=== PATIENT | female | born 1990 | race Caucasian/White ===

== ENCOUNTER 2020-10-29 22:11 | Emergency (ER) | payer MEDICAID, OTHER ==
[~2020-10-29] VITALS: Ht 167.7 cm; Wt 54.4 kg
[2020-10-29 22:34] VITALS: BP 138/64
[2020-10-29] MEDS ORDERED: PROMETHAZINE INJ 25 MG/ML (PHENERGAN) AMP ONE (22:43)
[2020-10-29] MEDS ORDERED: ACETAMINOPHEN 500 MG TAB (TYLENOL) ONE (22:44)
[2020-10-29 22:56] LABS: BILIRUBIN,URINE NEGATIVE (NEGATIVE); CLARITY,URINE CLOUDY; COLOR,URINE YELLOW; GLUCOSE, URINE (UA) NEGATIVE (NEGATIVE); KETONES,URINE NEGATIVE (NEGATIVE); LEUKOCYTE ESTERASE ,URINE NEGATIVE (NEGATIVE); NITRITE,URINE NEGATIVE (NEGATIVE); PROTEIN,URINE NEGATIVE (NEGATIVE)
--- NOTE | 2020-10-29 22:57 | ED Cough/URI ---
General Chief Complaint: Cough/Cold/Flu Symptoms Stated Complaint: N/V, CHILLS/LOSS OF TASTE/APPROX 9 WKS PREG Nursing Triage Note: PT AMBULATE TO ROOM 09 WITH C/O "NOT FEELING VERY WELL". PT STATES THAT SHE HAS CHILLS, N/V, COUGH. PT REPORTS SHE WAS TESTED FOR THE DAVIS 1-2 WEEKS AGO AND RESULTS WERE NEGATIVE. PT REPORTS SHE IS 9-10 WEEKS AND HAS BEEN SEEN BY AN OB PROVIDER IN [place]. PT REPORTS SYMPTOMS STARTED AT 2000 OR 2100 THIS EVENING. Sepsis Screen: No Definite Risk Source: patient Exam Limitations: no limitations History of Present Illness Date Seen by Provider: Oct 29, 2020 Time Seen by Provider: 22:40 Initial Comments Patient presents ER by private conveyance with chief complaint that today she started having symptoms of chills, body aches, nausea and vomited times twice. No known sick contacts but previously she worked at a [employer] in [employer]. No fever. She has not taken any antipyretics. She has a last menstrual period of August 21 putting her at 9 weeks 6 days gestation followed by Dr. Hood, obstetrics at [place], [place]. She had an ultrasound confirming her dates and no other known medical problems. Allergies and Home Medications Allergies Coded Allergies: No Known Drug Allergies (Unverified , 10/29/20) Patient Home Medication List Home Medication List Reviewed: Yes Review of Systems Review of Systems Constitutional: chills, diaphoresis; No fever; malaise EENTM: No ear discharge, No ear pain Respiratory: cough; No dyspnea on exertion, No short of breath Cardiovascular: No chest pain, No palpitations Gastrointestinal: No abdominal pain, No constipation, No diarrhea Genitourinary: No discharge, No dysuria Musculoskeletal: No back pain, No joint pain Psychiatric/Neurological: Denies Anxiety, Denies Depressed All Other Systems Reviewed Negative Unless Noted: Yes Past Ffnnyyj-Jqaqhk-Ruymtt Hx Patient Social History Alcohol Use: Denies Use Drug of Choice: POT Smoking Status: Current Everyday Smoker Type Used: Cigarettes 2nd Hand Smoke Exposure: Yes Recent Infectious Disease Expo: No Recent Hopitalizations: No Seasonal Allergies Seasonal Allergies: No Past Medical History Surgeries: No Respiratory: No Cardiac: No Neurological: No Sexually Transmitted Disease: Yes (GONORRHEA) Genitourinary: Yes Bladder Infection Gastrointestinal: No Musculoskeletal: No Endocrine: No HEENT: No Cancer: No Psychosocial: No Integumentary: No Blood Disorders: No Physical Exam Vital Signs - First Documented 10/29/20 22:34 Temp 36.2 Pulse 83 Resp 18 B/P (MAP) 138/64 (88) O2 Delivery Room Air Capillary Refill : Less Than 3 Seconds Height: '" Weight: lbs. oz. kg; 19.00 BMI Method: General Appearance: WD/WN, mild distress Eyes: Bilateral Eye Normal Inspection, Bilateral Eye PERRL HEENT: PERRL/EOMI, normal ENT inspection, pharynx normal Neck: full range of motion, supple, normal inspection Respiratory: lungs clear, normal breath sounds, no respiratory distress, no accessory muscle use Cardiovascular: normal peripheral pulses, regular rate, rhythm Neurologic/Psychiatric: alert, normal mood/affect, oriented x 3 Progress/Results/Core Measures Suspected Sepsis Recent Fever Within 48 Hours: No Infection Criteria Present: None New/Unexplained Altered Menta: No Sepsis Screen: No Definite Risk SIRS Temperature: Pulse: 83 Respiratory Rate: 18 Blood Pressure 138 /64 Mean: 88 Results/Orders Lab Results Laboratory Tests Test 10/29/20 22:40 10/29/20 22:54 Range/Units Urine Color YELLOW Urine Clarity CLOUDY Urine pH 6.0 5-9 Urine Specific [place] 1.025 H 1.016-1.022 Urine Protein NEGATIVE NEGATIVE Urine Glucose (UA) NEGATIVE NEGATIVE Urine Ketones NEGATIVE NEGATIVE Urine Nitrite NEGATIVE NEGATIVE Urine Bilirubin NEGATIVE NEGATIVE Urine Urobilinogen 0.2 < = 1.0 MG/DL Urine Leukocyte Esterase NEGATIVE NEGATIVE Urine RBC (Auto) NEGATIVE NEGATIVE Urine RBC NONE /HPF Urine WBC 5-10 H /HPF Urine Squamous Epithelial Cells 10-25 H /HPF Urine Crystals NONE /LPF Urine Bacteria NEGATIVE /HPF Urine Casts PRESENT /LPF Urine Granular Casts 5-10 H /LPF Urine Mucus NEGATIVE /LPF Urine Culture Indicated NO Coronavirus 2019 (RISHI) Negative Negative Micro Results Microbiology 10/29/20 Influenza Types A,B Antigen (YANDEL) - Final, Complete My Orders Orders - CRISTINA JOHN Urine Bedside (10/29/20 22:12) Promethazine Injection (Phenergan Injec (10/29/20 22:43) Acetaminophen Tablet (Tylenol Tablet) (10/29/20 22:44) Ua Culture If Indicated (10/29/20 22:51) Urine Bedside (10/29/20 22:51) Promethazine Injection (Phenergan Injec (10/29/20 23:00) Acetaminophen Tablet (Tylenol Tablet) (10/29/20 23:00) Covid 19 Inhouse Test (10/29/20 22:52) Influenza A And B Antigens (10/29/20 22:52) Medications Given in ED Current Medications Medications Dose Ordered Sig/Vira Route Start Time Stop Time Status Last Admin Dose Admin Acetaminophen 1,000 mg ONCE ONCE PO 10/29/20 23:00 10/29/20 23:01 DC 10/29/20 22:57 1,000 MG Promethazine HCl 25 mg ONCE ONCE IM 10/29/20 23:00 10/29/20 23:01 DC 10/29/20 22:58 25 MG Vital Signs/I&O 10/29/20 10/29/20 22:34 22:41 Temp 36.2 Pulse 83 Resp 18 B/P (MAP) 138/64 (88) O2 Delivery Room Air Room Air Capillary Refill : Less Than 3 Seconds Blood Pressure Mean: 88 Progress Note #1: Time: 22:56 Progress Note Patient presents with viral syndrome so we will get a swab her for flu and Covid. She has a septic vital signs. She is having some chills so we will give her a gram of Tylenol. We have discussed conservative management of symptoms. Because of her nausea and vomiting and our concern for her becoming dehydrated we will give her a dose of Phenergan IM. Progress Note #2: Time: 23:35 Progress Note Patient says she feels significantly better and has had no further nausea. She is had no vomiting or material deterioration during her emergency room stay. She is ready to go home. We will provide her with some Phenergan and encouraged Tylenol as well as follow-up with the six pack loader operator. Return precautions have been discussed. We encouraged a pulse oximeter use as well. Departure Impression Primary Impression: Person under investigation for COVID-19 Additional Impression: Qualified Codes: Z3A.12 - 12 weeks gestation of Disposition: 01 HOME, SELF-CARE Condition: Stable Departure-Patient Inst. Decision time for Depature: 23:35 Referrals: NO,LOCAL PHYSICIAN (PCP/Family) Primary Care Physician Patient Instructions: Coronavirus Disease 2019 (COVID-19) in (DC) Add. Discharge Instructions: Drink plenty of fluids. Phenergan 1 tablet every 8 hours as necessary to control nausea and/or vomiting. Tylenol 1000 mg every 8 hours as necessary for body aches, fevers or malaise. Call and follow-up with your six pack loader operator over the phone. Obtain a pulse oximeter and if your oxygen saturation is consistently below 94% and you should return to the ER for further evaluation. Return to the nearest ER if you are having worsening shortness of breath, dehydration or other worrisome symptoms. All discharge instructions reviewed with patient and/or family. Voiced understanding. Scripts Promethazine HCl (Promethazine Tablet) 25 Mg Tablet 25 MG PO Q6H PRN for NAUSEA/VOMITING, #12 TAB 0 Refills Prov: CRISTINA JOHN 10/29/20 Work/School Note: Work Release Form Date Seen in the Emergency Department: Oct 29, 2020 Return to Work: Nov 08, 2020 Restrictions: No Restrictions Other Restrictions Listed Below: Off quarantine when 24 hours symptoms free without meds. CRISTINA JOHN Oct 29, 2020 22:57
[2020-10-29] MEDS ORDERED: PROMETHAZINE INJ 25 MG/ML (PHENERGAN) AMP IM ONE (23:00)
[2020-10-29] MEDS ORDERED: ACETAMINOPHEN 500 MG TAB (TYLENOL) PO ONE (23:00)
[2020-10-29 23:04] LABS: BACTERIA,URINE NEGATIVE /HPF
[2020-10-29] MEDS ORDERED: PROM25TA14 PO (23:41)
== END 2020-10-29 23:50 | disposition home or self-care (01) ==
LOC: ER 22:20
DX: O26.891 Other specified pregnancy related conditions, first trimester (principal); Z3A.09 9 weeks gestation of pregnancy; F17.210 Nicotine dependence, cigarettes, uncomplicated; Z20.828 Contact with and (suspected) exposure to other viral communicable diseases
CPT/HCPCS: 81000; 84703; 87804; U0002; 87635

== ENCOUNTER 2021-05-07 15:14 | Outpatient (CLI) | payer MEDICAID ==
[~2021-05-07 15:14] MED LIST: PROM25TA14 PO
--- NOTE | 2021-05-07 16:39 | Diagnostic Imaging Report ---
TECHNIQUE: Live grayscale and color Doppler ultrasound was performed over the gravid uterus. Biophysical profile was performed. COMPARISON: None. REASON FOR EXAM: Decelerations in the office. FINDINGS: A single live intrauterine gestation is visualized in cephalic presentation. heart tones measure 139 bpm. The placenta is along the left aspect of the uterus. The JAMES measures 9.7 cm. The biophysical profile score is 6 out of 8. 2 points were given for movement, tone, and JAMES. No points were given for breathing. 2 episodes of 15 seconds of breathing were observed, with the minimum of 30 seconds of breathing not witnessed during the exam. IMPRESSION: 1. Single live intrauterine gestation in cephalic presentation. 2. Biophysical profile score of 6 out of 8 with 0 points given for breathing. Recommend follow-up as indicated. Dictated by: Dictated on workstation # [id number]
[2021-05-07 17:07] VITALS: BP 141/88
--- NOTE | 2021-05-08 09:51 | Physician Query-Final Dx ---
VANI ANDRADE 05/08/21 0951: Clinic Account Progress/Dx Physician Query: Please give diagnosis Please include # weeks gestation Date of Service May 07, 2021 at 15:14 RAJNI CARRERA DO 05/09/21 0903: Clinic Account Progress/Dx DIAGNOSIS: Diagnosis 37 week GA bradycardia on out-patient doppler reassuring monitoring VANI ANDRADE May 08, 2021 09:51 RAJNI CARRERA DO May 09, 2021 09:03
== END 2021-05-07 17:12 | disposition home or self-care (01) ==
LOC: WSo 15:14 → LDRP 15:14 → WSo 17:12
PROVIDERS: ATTEND Family Medicine
DX: Z34.90 Encounter for supervision of normal pregnancy, unspecified, unspecified trimester (principal); Z3A.00 Weeks of gestation of pregnancy not specified
CPT/HCPCS: 59025; 76819

== ENCOUNTER 2021-05-14 13:50 | Inpatient (IN) | payer MEDICAID ==
[~2021-05-14] VITALS: Ht 171 cm; Wt 70.0 kg
[2021-05-14] VITALS (43 sets, daily range): BP systolic 83–170; BP diastolic 46–99
[2021-05-14] MEDS ORDERED: OXYTOCIN PRE-MIX DRIP 500 ML IV SCH (15:00)
[2021-05-14] MEDS ORDERED: MINERAL OIL CONCENTRATE 99.9% 15 ML UDC TOP PRN (15:00)
[2021-05-14] MEDS ORDERED: D5 LR IV SOLUTION 1,000 ML IV ONE (15:12)
[2021-05-14] MEDS ORDERED: OXYTOCIN PRE-MIX DRIP 500 ML IV ONE (15:21)
[2021-05-14 15:43] LABS: HEMOGLOBIN 13.1 g/dL (11.5-16.0); MEAN PLATELET VOLUME 12.6 fL (9.0-12.2)
[2021-05-14 15:45] LABS: BASOPHILS # (AUTO) 0.1 10^3/uL (0.0-0.1); BASOPHILS % (AUTO) 0 % (0-10); EOSINOPHILS # (AUTO) 0.2 10^3/uL (0.0-0.3); EOSINOPHILS % (AUTO) 1 % (0-10); HEMATOCRIT 39 % (35-52); LYMPHOCYTES # (AUTO) 2.1 10^3/uL (1.0-4.0); LYMPHOCYTES % (AUTO) 15 % (12-44); MEAN CORPUSCULAR HEMOGLOBIN 32 pg (25-34); MEAN CORPUSCULAR HGB CONC 34 g/dL (32-36); MEAN CORPUSCULAR VOLUME 94 fL (80-99); MONOCYTES # (AUTO) 0.9 10^3/uL (0.0-1.0); MONOCYTES % (AUTO) 7 % (0-12); NEUTROPHILS # (AUTO) 10.8 10^3/uL (1.8-7.8); NEUTROPHILS % (AUTO) 75 % (42-75); PLATELET COUNT 123 10^3/uL (130-400); WHITE BLOOD COUNT 14.4 10^3/uL (4.3-11.0)
[2021-05-14 15:46] LABS: ALBUMIN 3.3 GM/DL (3.2-4.5); BILIRUBIN,TOTAL 0.6 MG/DL (0.1-1.0); CALCIUM 8.8 MG/DL (8.5-10.1); CREATININE SERUM 0.7 MG/DL (0.60-1.30); POTASSIUM 3.7 MMOL/L (3.6-5.0); TOTAL PROTEIN 6.7 GM/DL (6.4-8.2); URIC ACID 6.2 MG/DL (2.6-7.2)
[2021-05-14 16:03] LABS: BAND NEUTROPHILS 0 %; LYMPHOCYTES % (MANUAL) 20 %; NEUTROPHILS % (MANUAL) 70 %
[2021-05-14 16:04] LABS: ATYPICAL LYMPHOCYTES 2 %; BASOPHILS % (MANUAL) 0 %; EOSINOPHILS % (MANUAL) 1 %; MONOCYTES % (MANUAL) 7 %; RBC MORPH NORMAL
[2021-05-14] MEDS ORDERED: fentaNYL 2 mcg/ml BUPIVA 0.125 100 ML ONE (17:09)
[2021-05-14] MEDS ORDERED: LACTATED RINGERS 1,000 ML IV ONE (17:09)
[2021-05-14] MEDS ORDERED: hydrALAZINE (APESOLINE) 20 MG/ML VIAL IV PRN (17:15)
[2021-05-14] MEDS ORDERED: LABETALOL HCL 100 MG/20 ML VIAL IV PRN (17:15)
[2021-05-14 17:21] LABS: AMPHETAMINE SCREEN, URINE NEGATIVE (NEGATIVE); BARBITURATE SCREEN URINE NEGATIVE (NEGATIVE); BENZODIAZEPINES SCREEN URINE NEGATIVE (NEGATIVE); CANNABINOID SCREEN, URINE POSITIVE (NEGATIVE); COCAINE SCREEN URINE NEGATIVE (NEGATIVE); METHADONE STAT NEGATIVE (NEGATIVE); METHAMPHETAMINE SCREEN URINE S NEGATIVE (NEGATIVE); OPIATE SCREEN URINE NEGATIVE (NEGATIVE); OXYCODONE STAT NEGATIVE (NEGATIVE); PROPOXYPHENE STAT NEGATIVE (NEGATIVE); TRICYCLIC ANTIDEPRESSANTS SCRE NEGATIVE (NEGATIVE)
[2021-05-14] MEDS ORDERED: fentaNYL INJ 100 MCG/2 ML AMP ONE (18:30)
[2021-05-14] MEDS ORDERED: BUPIVACAINE 0.25% 30 ML (SENSORCAINE) VIAL ONE (18:30)
[2021-05-14] MEDS ORDERED: EPIDURAL (fentaNYL 2 MCG/ML BUPIVA 0.125%)100 ML BAG EPI PRN (20:15)
[2021-05-14] MEDS ORDERED: METOCLOPRAMIDE INJ 10 MG/2 ML (REGLAN) IV PRN (20:15)
[2021-05-14] MEDS ORDERED: NALOXONE 0.4 MG/ML 1 ML (NARCAN) VIAL IV PRN ×2 (20:15)
[2021-05-14] MEDS ORDERED: diphenhydrAMINE 50 MG/ML INJ (BENADRYL) IV PRN (20:15)
[2021-05-14] MEDS ORDERED: LACTATED RINGERS 1,000 ML IV SCH (20:15)
[2021-05-14] MEDS ORDERED: ONDANSETRON 4 MG/2 ML (SDV) Z0FRAN IV PRN (20:15)
--- NOTE | 2021-05-14 20:18 | History & Physical-OB ---
OB - Chief Complaint & HPI Date/Time Date of Admission: Date of Admission: May 14, 2021 at 13:50 Date seen by a Provider: May 14, 2021 Time Seen by a Provider: 20:13 Chief Complaint/History OB-Reason for Admission/Chief: Obstetrical Complication Hx : 5 Hx Para: 2112 Expected Date of Delivery: May 28, 2021 Gestational Age in Weeks: 38 Gestational Age in Days: 0 History of Labs O pos, antibody neg, RI. HIV/hepB/RPR NR. GBS neg. Allergies and Home Medications Allergies Coded Allergies: No Known Drug Allergies (Unverified , 10/29/20) Home Medications No Active Prescriptions or Reported Meds Patient Home Medication List Home Medication List Reviewed: Yes OB - History Hx of Present Care: Yes Ultrasounds: Normal mid trimester US Obstetrical Complications: Gestational Hypertension Information Induced Hypertension: Yes Maternal Gestational Diabetes: No Hemorrhage: No Obstetrical History Hx : 5 Hx Para: 3 Hx # Term Pregnancies: 2 Hx # Pregnancies: 1 Number of Living Children: 3 Hx Total # of Abortions (Spona: 1 Hx Multiple Gestation: No Hx Ectopic : No Hx Stillbirth: No Hx Complication: Yes Hx Induced Hypertens: Yes Hx Maternal Gestational Diabet: No Hx Hemorrhage: No Delivery History Hx Dystocia: No Hx Forceps Assisted Delivery: No Hx Vacuum Extraction Assisted: No Hx Placenta Abnormality: No Hx Distress: No Hx Large For Gestational Age I: No Hx Small for Gestational Age I: No Hx Section: No Hx Vaginal Delivery Post C-Sec: No Hx Blood Disorders: No Adverse Rxn to Tranfusion: No Patient Past Medical History PMHx: Denies SurgHx: Denies Social History/Family History Alcohol Use: Denies Use Recreational Drug Use: No (denies) Smoking Cessation: Current every day smoker 2nd Hand Smoke Exposure: Yes Immunizations Hepatitis A: Yes Hepatitis B: Yes Rubella: immune RPR/VDRL: Negative GBS Status: Negative HBsAG: Negative OB - Admission Exam Physical Exam Vitals: Vital Signs 05/14/21 05/14/21 18:37 19:30 Temp 37.1 Pulse 88 Resp 18 B/P (MAP) 138/91 (107) Pulse Ox 99 O2 Delivery Room Air HEENT: NCAT Abdomen: Non tender Extremities: Edema Cervical Dilatation: 4cm Effacement: 25% Station: -2 Membranes: Ruptured (at time of exam) Amniotic Fluid: Clear Heart Rate: 140's Accelerations: Accelerations Present Decelerations: No Decelerations Short Term Variability: Present Ice Seller Variability: Average (6-25) Contractions on Admission: None Deal Scoring Tool (Modified) Dilation (cm): 3-4cm (2) Effacement (%): 0-30% (0) Descent/Station: -3 (0) Cervix Consistency: Medium(1) Cervix Position: Middle/Mid-Position (1) Add 1 point for: Each previous vaginal delivery (1) (3) Deal Score: 7 Labs Laboratory Tests Test 05/14/21 14:08 05/14/21 15:16 Range/Units Urine Protein 8 6-12 MG/DL Urine Creatinine 86 30-125 MG/DL Urine Protein/Creatinine Ratio 0.09 Urine Opiates Screen NEGATIVE NEGATIVE Urine Oxycodone Screen NEGATIVE NEGATIVE Urine Methadone Screen NEGATIVE NEGATIVE Urine Propoxyphene Screen NEGATIVE NEGATIVE Urine Barbiturates Screen NEGATIVE NEGATIVE Ur Tricyclic Antidepressants Screen NEGATIVE NEGATIVE Urine Phencyclidine Screen NEGATIVE NEGATIVE Urine Amphetamines Screen NEGATIVE NEGATIVE Urine Methamphetamines Screen NEGATIVE NEGATIVE Urine Benzodiazepines Screen NEGATIVE NEGATIVE Urine Cocaine Screen NEGATIVE NEGATIVE Urine Cannabinoids Screen POSITIVE H NEGATIVE White Blood Count 14.4 H 4.3-11.0 10^3/uL Red Blood Count 4.13 3.80-5.11 10^6/uL Hemoglobin 13.1 11.5-16.0 g/dL Hematocrit 39 35-52 % Mean Corpuscular Volume 94 80-99 fL Mean Corpuscular Hemoglobin 32 25-34 pg Mean Corpuscular Hemoglobin Concent 34 32-36 g/dL Red Cell Distribution Width 13.1 10.0-14.5 % Platelet Count 123 L 130-400 10^3/uL Mean Platelet Volume 12.6 H 9.0-12.2 fL Immature Granulocyte % (Auto) 2 % Neutrophils (%) (Auto) 75 42-75 % Lymphocytes (%) (Auto) 15 12-44 % Monocytes (%) (Auto) 7 0-12 % Eosinophils (%) (Auto) 1 0-10 % Basophils (%) (Auto) 0 0-10 % Neutrophils # (Auto) 10.8 H 1.8-7.8 10^3/uL Lymphocytes # (Auto) 2.1 1.0-4.0 10^3/uL Monocytes # (Auto) 0.9 0.0-1.0 10^3/uL Eosinophils # (Auto) 0.2 0.0-0.3 10^3/uL Basophils # (Auto) 0.1 0.0-0.1 10^3/uL Immature Granulocyte # (Auto) 0.3 H 0.0-0.1 10^3/uL Neutrophils % (Manual) 70 % Lymphocytes % (Manual) 20 % Monocytes % (Manual) 7 % Eosinophils % (Manual) 1 % Basophils % (Manual) 0 % Band Neutrophils 0 % Atypical Lymphocytes 2 % Percent Immature Platelet Fraction 17.0 H 0.0-7.6 % Blood Morphology Comment NORMAL Sodium Level 137 135-145 MMOL/L Potassium Level 3.7 3.6-5.0 MMOL/L Chloride Level 108 H 98-107 MMOL/L Carbon Dioxide Level 21 21-32 MMOL/L Anion Gap 8 5-14 MMOL/L Blood Urea Nitrogen 9 7-18 MG/DL Creatinine 0.70 0.60-1.30 MG/DL Estimat Glomerular Filtration Rate 98 BUN/Creatinine Ratio 13 Glucose Level 77 70-105 MG/DL Uric Acid 6.2 2.6-7.2 MG/DL Calcium Level 8.8 8.5-10.1 MG/DL Corrected Calcium 9.4 8.5-10.1 MG/DL Total Bilirubin 0.6 0.1-1.0 MG/DL Aspartate Amino Transf (AST/SGOT) 17 5-34 U/L Alanine Aminotransferase (ALT/SGPT) 21 0-55 U/L Alkaline Phosphatase 182 H 40-136 U/L Lactate Dehydrogenase 159 125-220 U/L Total Protein 6.7 6.4-8.2 GM/DL Albumin 3.3 3.2-4.5 GM/DL OB - Assessment/Plan/Diagnosis Assessment Admission Dx Term intrauterine at 38 weeks gestation Chronic hypertension (present before 20 weeks gestation with unknown baseline) with superimposed severe elevation in blood pressure GBS negative Admission Status: Inpatient Order (span 2 midnights) Reason for Inpatient Admission: Labor, delivery and course Plan Plan: Induction Induction Method: per Pitocin Protocol Other Plan BP severely elevated in clinic, blood pressure inpatient better. Labetalol if needed, preeclmapsia labs negative on admit. AROM done at time of exam with clear fluid. ADRYAN TRAMMELL MD May 14, 2021 20:18
[2021-05-14] MEDS ORDERED: PNV91TAB6 PO (20:19)
[2021-05-14] MEDS ORDERED: ASPI-1238 PO (20:19)
[2021-05-14] MEDS ORDERED: SERT-413 PO (20:19)
[2021-05-14] MEDS ORDERED: CATHETER FLUSH 10 ML SYR IV SCH (22:00)
[2021-05-14] MEDS: D5 LR IV SOLUTION 1,000 ML IV SCH (22:40)
[2021-05-15] VITALS (40 sets, daily range): BP systolic 119–174; BP diastolic 55–104
[2021-05-15] MEDS: D5 LR IV SOLUTION 1,000 ML IV SCH ×2 (02:33→17:53)
[2021-05-15] MEDS ORDERED: CITRIC ACID/SOB CIT (BICITRA) 30 ML UDC ONE (09:05)
[2021-05-15] MEDS ORDERED: FAMOTIDINE 20MG/2ML IV (PEPCID) ONE (09:06)
[2021-05-15] MEDS ORDERED: fentaNYL INJ 100 MCG/2 ML AMP ONE (09:14)
[2021-05-15] MEDS ORDERED: LACTATED RINGERS 1,000 ML IV PRN ×2 (09:15)
[2021-05-15] MEDS ORDERED: METOCLOPRAMIDE INJ 10 MG/2 ML (REGLAN) IV ONE (09:15)
[2021-05-15] MEDS ORDERED: metroNIDAZOLE 500MG/100ML IVPB 100 ML IV ONE (09:15)
[2021-05-15] MEDS ORDERED: FAMOTIDINE 20MG/2ML IV (PEPCID) IV ONE (09:15)
[2021-05-15] MEDS ORDERED: CITRIC ACID/SOB CIT (BICITRA) 30 ML UDC PO ONE (09:15)
[2021-05-15] MEDS ORDERED: metroNIDAZOLE 500MG/100ML IVPB 100 ML ONE (09:20)
[2021-05-15] MEDS ORDERED: ceFAZolin 2 GM IV Premixed 50 ML ONE (09:20)
[2021-05-15] MEDS ORDERED: LIDOCAINE PF 2% 5 ML (XYLOCAINE) VIAL ONE (09:22)
[2021-05-15] MEDS ORDERED: BUPIVACAINE 0.5% 30 ML (SENSORCAINE) VIAL ONE (09:22)
[2021-05-15] MEDS ORDERED: ONDANSETRON 4 MG/2 ML (SDV) Z0FRAN ONE (09:22)
[2021-05-15] MEDS ORDERED: OXYTOCIN PRE-MIX DRIP 500 ML IV SCH (10:00)
[2021-05-15] MEDS ORDERED: D5 LR IV SOLUTION 1,000 ML IV SCH (10:00)
[2021-05-15] MEDS ORDERED: TETANUS,DIPTH,PERTUSS P/F (BOOSTRIX) 0.5 ML VIAL IM ONE (10:00)
[2021-05-15] MEDS ORDERED: NALOXONE 0.4 MG/ML 1 ML (NARCAN) VIAL IV PRN (10:00)
[2021-05-15] MEDS ORDERED: ONDANSETRON 4 MG/2 ML (SDV) Z0FRAN IVP PRN ×2 (10:00→10:15)
[2021-05-15] MEDS ORDERED: MEASLES,MUMPS,RUBELLA 1 EA INJ SC ONE (10:00)
[2021-05-15] MEDS ORDERED: fentaNYL INJ 100 MCG/2 ML AMP IVP PRN (10:00)
[2021-05-15] MEDS ORDERED: PROMETHAZINE INJ 25 MG/ML (PHENERGAN) AMP IVP ONE (10:15)
[2021-05-15] MEDS ORDERED: MEPERIDINE (DEMEROL) INJ 50 MG/ML IVP ONE (10:15)
[2021-05-15] MEDS ORDERED: morphine INJ 10 MG/ML 1ML (SYR OR VIAL) IVP ONE (10:15)
[2021-05-15] MEDS: KETOROLAC 30 MG/ML VIAL IVP PRN ×2 (11:18→17:49)
[2021-05-15] MEDS: oxyCODONE/APAP 10/325MG (PERCOCET 10) TABLET PO PRN ×3 (13:41→21:51)
[2021-05-15] MEDS ORDERED: DOCUSATE SODIUM 100 MG (COLACE) CAP PO SCH (21:00)
[2021-05-15] MEDS: DOCUSATE SODIUM 100 MG (COLACE) CAP PO SCH (21:51)
[2021-05-16 00:27] VITALS: BP 150/84
[2021-05-16] MEDS: KETOROLAC 30 MG/ML VIAL IVP PRN ×2 (00:27→05:27)
[2021-05-16 05:26] VITALS: BP 159/88
--- NOTE | 2021-05-16 07:12 | Progress Note ---
Standard Progress Note Progress Notes/Assess & Plan Date Seen by a Provider: May 16, 2021 Time Seen by a Provider: 07:11 Progress/Assessment & Plan This patient is without complaint. She is ambulating, voiding, tolerating oral intake well has good pain control. Vital Signs 05/15/21 05/15/21 05/16/21 07:30 10:58 05:26 Temp 36.6 Pulse 86 Resp 18 B/P (MAP) 159/88 (111) Pulse Ox 96 O2 Delivery Room Air O2 Flow Rate 15.00 Vital signs are stable. Patient is afebrile. Fundus is firm below the umbilicus and nontender. The surgical incision is clean dry and intact. Extremities show no clubbing or cyanosis. There is no Homans' sign. Assessment and plan Postoperative day 1 status post primary delivery doing well. Plans for routine convalescent care with likely discharge home tomorrow MIR YAN MD May 16, 2021 07:12
[2021-05-16] MEDS ORDERED: DCS100C PO (07:14)
[2021-05-16] MEDS ORDERED: OXYC1TAB12 PO (07:14)
[2021-05-16] MEDS ORDERED: IBUP-1780 PO (07:14)
--- NOTE | 2021-05-16 07:15 | Discharge Inst-Surgical ---
Discharge Inst-Surgical Depart Medication/Instructions New, Converted or Re-Newed RX: Transmitted to Pharmacy Consults/Follow Up Patient Instructions: As directed Orders & Referrals Follow Up Appt: RTC 1 week for incision check With Dr. Arevalo. Call to make follow up appt. for patient in [address] Hopkins. Wound Care: Remove sohan, apply benzoin and steri strips. Activity Per routine post instructions. Diet as tolerated Patient may shower or tub bathe as desired. Continue home meds Activity Activity as Tolerated: No Diet Discharge Diet: No Restrictions MIR AREVALO MD May 16, 2021 07:15
[2021-05-16 09:00] VITALS: BP 165/78
[2021-05-16] MEDS: DOCUSATE SODIUM 100 MG (COLACE) CAP PO SCH ×2 (09:10→22:01)
[2021-05-16] MEDS: oxyCODONE/APAP 10/325MG (PERCOCET 10) TABLET PO PRN ×2 (09:11→18:13)
[2021-05-16] MEDS ORDERED: ceFAZolin 2 GM IV Premixed 50 ML IV ONE (09:15)
[2021-05-16 12:15] VITALS: BP 151/71
[2021-05-16] MEDS ORDERED: IBUPROFEN 800 MG (MOTRIN) TAB PO ONE (12:32)
[2021-05-16] MEDS: IBUPROFEN 800 MG (MOTRIN) TAB PO SCH ×3 (12:33→23:32)
[2021-05-16] MEDS ORDERED: COVID-19 VACC,MRNA(MODERNA)/PF 100 MCG/0.5 ML VIAL IM ONE (13:30)
[2021-05-16 17:00] VITALS: BP 137/75
[2021-05-16] MEDS: NICOTINE 21 MG (NICODERM) PATCH TD SCH (17:00)
[2021-05-16 23:32] VITALS: BP 157/82
--- NOTE | 2021-05-17 00:39 | OPERATIVE REPORT ---
DATE OF SERVICE: 05/15/2021 PREOPERATIVE DIAGNOSIS: Term in labor with nonreassuring heart rate pattern. POSTOPERATIVE DIAGNOSIS: Term in labor with nonreassuring heart rate pattern with triple nuchal cord. OPERATIVE DESCRIPTION: With the patient in the supine position under satisfactory epidural analgesia, the patient was prepped and draped in the usual fashion for abdominal surgery. A Pfannenstiel incision was made through the skin with a scalpel, the patient's abdomen was entered in the usual manner. Bladder retractor placed in position, clean scalpel used to make a 4 cm hysterotomy incision transversely across the lower uterine segment that was extended by blunt dissection as well. Scant fluid was released on hysterotomy. A vigorous viable male was delivered via the uterine incision. Infant was bulb suctioned on delivery of the head. Nuchal cord x3 was released. This cord was quite tight. The delivery was completed. The umbilical cord doubly clamped and the infant passed to the auto electrician in attendance for delivery. Cord bloods were obtained. Placenta delivered spontaneously [place]. It was normal with a 3-vessel cord. The uterus was exteriorized and interior wiped clean with wet laparotomy sponge. Uterine incision then closed with a running locked suture of 2-0 Vicryl. Hemostasis was complete. The uterus was returned to abdominal cavity. All blood clot and debris removed from the abdominal cavity. Sponge and needle counts correct, hemostasis assured. Anterior parietal peritoneum was closed with running suture of 2-0 Vicryl. Rectus muscles were closed with that suture as well. The rectus fascia was closed with 2-0 Vicryl, subcutaneous tissue was closed with 2-0 Vicryl and the skin was stapled. Sponge and needle counts were correct on completion of the procedure. Blood loss for the procedure was around 250 mL. The patient tolerated the procedure well and was transferred to the recovery room in stable condition. The baby had been taken stable to the full term nursery. Job ID: [id number] DocumentID: [id number] Dictated Date: 05/16/2021 08:06:35 Panel Lay Up Worker Date: 05/17/2021 00:38:40 Dictated By: MIR YAN MD
[2021-05-17 06:29] VITALS: BP 116/74
[2021-05-17] MEDS: IBUPROFEN 800 MG (MOTRIN) TAB PO SCH ×2 (06:29→12:43)
[2021-05-17] MEDS: oxyCODONE/APAP 10/325MG (PERCOCET 10) TABLET PO PRN (06:29)
--- NOTE | 2021-05-17 07:44 | Progress Note ---
Standard Progress Note Progress Notes/Assess & Plan Date Seen by a Provider: May 17, 2021 Time Seen by a Provider: 07:43 Progress/Assessment & Plan This patient is without complaint. She is ambulating, voiding, tolerating oral intake well has good pain control. Vital Signs 05/15/21 05/15/21 05/16/21 07:30 10:58 05:26 Temp 36.6 Pulse 86 Resp 18 B/P (MAP) 159/88 (111) Pulse Ox 96 O2 Delivery Room Air O2 Flow Rate 15.00 Vital signs are stable. Patient is afebrile. Fundus is firm below the umbilicus and nontender. The surgical incision is clean dry and intact. Extremities show no clubbing or cyanosis. There is no Homans' sign. Assessment and plan Postoperative day 1 status post primary delivery doing well. Plans for routine convalescent care with likely discharge home tomorrow May 17, 2021 Patient is without complaint. She is ambulating, voiding, tolerating oral intake well and has good pain control. Vital Signs Date Time Temp Pulse Resp B/P (MAP) Pulse Ox O2 Delivery O2 Flow Rate FiO2 05/17/21 06:29 36.2 79 18 116/74 (88) 98 Room Air 05/16/21 23:32 36.3 87 18 157/82 (107) 98 Room Air 05/16/21 17:00 36.6 87 18 137/75 (95) 98 Room Air 05/16/21 12:15 36.8 88 18 151/71 (97) 99 Room Air 05/16/21 09:00 36.8 92 18 165/78 (107) 98 Room Air I & O 05/17/21 07:00 Intake Total 2100 ml Balance 2100 ml Vital signs are stable. Patient is afebrile. The abdomen is benign. The surgical incision is clean dry and intact. Fundus is firm below the umbilicus and nontender. Extremities show no clubbing or cyanosis. There is no Homans' sign. Assessment and plan Postoperative day #2 status post primary delivery doing well. Plan is for routine convalescent care with discharge home and follow-up in clinic MIR YAN MD May 17, 2021 07:44
--- NOTE | 2021-05-17 07:47 | Discharge Summary ---
Discharge Summary 38-week primary delivery This patient is a 30-year-old female patient of Dr. Hopkins who was admitted on May 14, 2021 duction of labor. She made no progress on the day of admission. On May 15 she dilated to 4 or 5 cm and stalled there began having recurrent decelerations and decision was made to proceed with delivery. Patient was taken the operating room where a primary was performed. Intraoperative findings included a triple nuchal cord that was released with some difficulty. The procedure was otherwise. Patient recovered uneventfully. On May 16 which was postoperative day 1 patient was ambulating, voiding control. She had routine care through the day and was stable. Now on May 17 patient again is without complaint. She is ambulating, voiding, tolerating oral intake well and has good pain control. She is discharged home and is determined she can be discharged home. Clinical diagnosis this hospitalization is 38-week primary delivery secondary diagnoses are made progress in labor Nonreassuring heart rate pattern Nuchal cord x3 Operation procedures include action of labor per Dr. Hopkins Epidural analgesia Primary delivery Patient was given appropriate discharge instructions verbally in writing copy was placed in chart. Discharge medications were Percocet MIR Pereira MD May 17, 2021 07:47
[2021-05-17] MEDS: DOCUSATE SODIUM 100 MG (COLACE) CAP PO SCH (08:28)
[2021-05-17 08:30] VITALS: BP 130/61
[2021-05-17] MEDS ORDERED: NICOTINE PATCH REMOVAL TP SCH (08:59)
[2021-05-17] MEDS: NICOTINE 21 MG (NICODERM) PATCH TD SCH (12:43)
[2021-05-17 12:50] VITALS: BP 130/61
[2021-05-20] MEDS ORDERED: IBUPROFEN 800 MG (MOTRIN) TAB PO SCH (12:00)
== END 2021-05-17 12:50 | disposition home or self-care (01) | DRG 788 ==
LOC: LDRP 13:50
PROVIDERS: ADMIT Family Medicine; ATTEND Family Medicine
PROC: 10D00Z1 Extraction of Products of Conception, Low, Open Approach (ICD-10-PCS; principal; 2021-05-16)
DX: O76 Abnormality in fetal heart rate and rhythm complicating labor and delivery (principal); O13.4 Gestational [pregnancy-induced] hypertension without significant proteinuria, complicating childbirth; O99.334 Smoking (tobacco) complicating childbirth; F17.210 Nicotine dependence, cigarettes, uncomplicated; Z3A.38 38 weeks gestation of pregnancy; Z37.0 Single live birth; O69.81X0 Labor and delivery complicated by cord around neck, without compression, not applicable or unspecified
CPT/HCPCS: 36415; 80053; 80306; 82570; 83615; 84156; 84550; 85007; 85027; 86850; 86900; 86901; 88307; 91301

== ENCOUNTER 2021-06-21 07:24 | Emergency (ER) | payer MEDICAID ==
[~2021-06-21] VITALS: Ht 167 cm; Wt 61.2 kg
[~2021-06-21 07:24] MED LIST changes: +ASPI-1238 PO; +DCS100C PO; +IBUP-1780 PO; +OXYC1TAB12 PO; +PNV91TAB6 PO; +SERT-413 PO
[2021-06-21 08:22] LABS: HEMATOCRIT 38 % (35-52); HEMOGLOBIN 12.3 g/dL (11.5-16.0); MEAN CORPUSCULAR HEMOGLOBIN 30 pg (25-34); MEAN CORPUSCULAR HGB CONC 32 g/dL (32-36); MEAN CORPUSCULAR VOLUME 95 fL (80-99); MEAN PLATELET VOLUME 11.4 fL (9.0-12.2); PLATELET COUNT 165 10^3/uL (130-400); WHITE BLOOD COUNT 8.2 10^3/uL (4.3-11.0)
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
[2021-06-21 09:15] VITALS: BP 151/88
== END 2021-06-21 09:17 | disposition home or self-care (01) ==
LOC: ER 07:24 → EDUNIT# 07:30 → ER 09:17
DX: O72.1 Other immediate postpartum hemorrhage (principal); I10 Essential (primary) hypertension; F17.210 Nicotine dependence, cigarettes, uncomplicated; Z79.82 Long term (current) use of aspirin
CPT/HCPCS: 36415; 85027; 99283

== ENCOUNTER 2023-03-19 10:10 | Emergency (ER) | payer MEDICAID ==
[~2023-03-19 10:10] MED LIST changes: -DCS100C PO; +DOCU-239 PO
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
[2023-03-19] MEDS ORDERED: IBUPROFEN 800 MG (MOTRIN) TAB PO ONE (11:15)
--- NOTE | 2023-03-19 11:33 | Diagnostic Imaging Report ---
INDICATION: Pain. EXAMINATION: Right ankle 03/19/2023 Three views of the ankle FINDINGS: There is no evidence for an acute fracture or dislocation. The joint spaces are well maintained. There is no significant soft tissue swelling. IMPRESSION: No acute process. Dictated by: Dictated on workstation # [id number]
--- NOTE | 2023-03-19 11:44 | Diagnostic Imaging Report ---
FOOT, RIGHT, 3 VIEW INDICATION: Right foot pain COMPARISON: None available. TECHNIQUE: Three non-weightbearing views of foot were obtained. FINDINGS: No fracture or traumatic malalignment. No evidence of metatarsal stress fracture. No soft tissue swelling. IMPRESSION: 1. No acute fracture or traumatic malalignment. Dictated by: Dictated on workstation # [id number]
[2023-03-19 12:05] VITALS: BP 142/88
== END 2023-03-19 12:05 | disposition home or self-care (01) ==
LOC: EDUNIT# 10:10 → ER 10:13
DX: S93.601A Unspecified sprain of right foot, initial encounter (principal); F17.210 Nicotine dependence, cigarettes, uncomplicated; V29.99XA Rider (driver) (passenger) of other motorcycle injured in unspecified traffic accident, initial encounter; Y92.410 Unspecified street and highway as the place of occurrence of the external cause; Y93.39 Activity, other involving climbing, rappelling and jumping off
CPT/HCPCS: 73610; 73630